=== PATIENT | male | born 2000 ===

== ENCOUNTER 2022-09-25 20:52 | Emergency (ER) | payer BC ==
[~2022-09-25] VITALS: Ht 152 cm; Wt 59.0 kg
[2022-09-25 21:03] VITALS: BP 155/78
[2022-09-25] MEDS ORDERED: IBUP-1773 PO (21:13)
[2022-09-25] MEDS ORDERED: PENI500T PO (21:13)
--- NOTE | 2022-09-25 21:13 | ED EENT ---
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 PT STATES HE WAS EATING CHICKEN AND RICE WHEN IT BEGAN HURTING Source: patient Exam Limitations: no limitations (CARLOS YOU APRN) History of Present Illness Date Seen by Provider: Sep 25, 2022 Time Seen by Provider: 21:00 Initial Comments Patient is a 22-year-old male who presents to the emergency department for evaluation of bilateral upper tooth pain that began earlier today. Patient denies any specific injury preceding the onset of pain. Patient uses smokeless tobacco. He also endorses some facial swelling bilaterally. Denies any difficulty swallowing, difficulty breathing, drooling, or inability to fully open his mouth. (CARLOS YOU APRN) Allergies and Home Medications Allergies Coded Allergies: No Known Drug Allergies (Unverified , 09/25/22) Patient Home Medication List Home Medication List Reviewed: Yes (CARLOS YOU APRN) Ibuprofen (Ibuprofen) 600 Mg Tablet, 600 MG PO Q6H PRN for PAIN-MILD Prescribed by: Carlos You on 09/25/222112 Penicillin V Potassium (Penicillin V Potassium) 500 Mg Tablet, 500 MG PO TID Prescribed by: Carlos You on 09/25/222112 Review of Systems Review of Systems Constitutional: no symptoms reported, diaphoresis Ears: No Symptoms Reported Nose: no symptoms reported Mouth: see HPI Throat: no symptoms reported Respiratory: no symptoms reported Cardiovascular: no symptoms reported Gastrointestinal: no symptoms reported Musculoskeletal: no symptoms reported Skin: no symptoms reported Neurological: No Symptoms Reported Hematologic/Lymphatic: No Symptoms Reported (CARLOS YOU APRN) Past Tdpoeko-Zdwfpj-Fkbmbg Hx Patient Social History Tobacco Use?: No Substance use?: No Alcohol Use?: No (CARLOS YOU APRN) Past Medical History Surgery/Hospitalization HX: denies (CARLOS YOU APRN) Physical Exam Vital Signs Vital Signs - First Documented 09/25/22 21:03 Temp 36.4 Pulse 64 Resp 14 B/P (MAP) 155/78 (103) (BASIM COLE DO) Height, Weight, BMI Height: '" Weight: lbs. oz. kg; 25.00 BMI Method: General Appearance: WD/WN, no apparent distress Mouth/Throat: dental tenderness Neck: non-tender, full range of motion, supple, normal inspection Cardiovascular: regular rate, rhythm Respiratory: chest non-tender, lungs clear, normal breath sounds Gastrointestinal: normal bowel sounds, non tender, soft Neurologic/Psychiatric: no motor/sensory deficits, alert, normal mood/affect, oriented x 3 Skin: normal color, warm/dry (CARLOS YOU APRN) Progress/Results/Core Measures Results/Orders Medications Given in ED Current Medications Medications Dose Ordered Sig/Greyson Route Start Time Stop Time Status Last Admin Dose Admin Ibuprofen 600 mg ONCE ONCE PO 09/25/22 21:15 09/25/22 21:16 DC 09/25/22 21:17 600 MG (BASIM COLE DO) Vital Signs/I&O 09/25/22 09/25/22 21:03 21:17 Temp 36.4 36.4 Pulse 64 Resp 14 B/P (MAP) 155/78 (103) (KELSEYCAROLA K DO) Blood Pressure Mean: 103 Progress Progress Note : Progress Note Patient is nontoxic and well-hydrated on exam. No adventitious lung sounds or gastric or breathing noted. No significant facial swelling noted on my exam. Patient has overall poor dentition with multiple broken teeth and visible caries. No significant gum swelling appreciated. No active drainage noted in the mouth. Patient was given a dose of ibuprofen and will be sent home with a prescription for pen VK. Discussed importance of follow-up with dental provider for definitive care. Return precautions for symptomology discussed. Patient verbalized understanding. (CARLOS YOU APRN) Departure Impression Primary Impression: Pain, dental Disposition: 01 HOME, SELF-CARE Condition: Stable Departure-Patient Inst. Decision time for Depature: 21:10 (CARLOS YOU APRN) Referrals: [facility] [place] Patient Instructions: Dental Pain (DC), Tooth Decay, Adult (DC) Scripts Penicillin V Potassium (Penicillin V Potassium) 500 Mg Tablet 500 MG PO TID for 7 Days, #21 TAB 0 Refills Prov: CARLOS YOU APRN 09/25/22 Ibuprofen (Ibuprofen) 600 Mg Tablet 600 MG PO Q6H PRN for PAIN-MILD for 5 Days, #20 TAB 0 Refills Prov: CARLOS YOU APRN 09/25/22 ATTENDING PHYSICIAN NOTE: I WAS PHYSICALLY PRESENT ER PHYSICIAN, BUT I WAS NOT INVOLVED IN ANY DECISION MAKING OR ANY CARE OF THIS PATIENT, AND I AM NOT COLLABORATING PHYSICIAN. (BASIM COLE DO) CARLOS YOU APRN Sep 25, 2022 21:13 BASIM COLE DO Sep 26, 2022 03:51
[2022-09-25] MEDS ORDERED: IBUPROFEN 600 MG (MOTRIN) TAB PO ONE (21:15)
== END 2022-09-25 21:18 | disposition home or self-care (01) ==
LOC: ER 20:55
DX: K03.81 Cracked tooth (principal); K02.9 Dental caries, unspecified; K00.7 Teething syndrome; F17.200 Nicotine dependence, unspecified, uncomplicated; Z28.310 Unvaccinated for COVID-19
CPT/HCPCS: 99283